=== PATIENT | male | born 1995 | race Caucasian/White ===

== ENCOUNTER 2019-11-09 19:13 | Emergency (ER) | payer SELFPAY ==
--- NOTE | 2019-11-09 19:35 | ED.PDOC ---
History of Present Illness - General Chief Complaint: Respiratory Problem Stated Complaint: Cough, fever, chest tightness Time Seen by Provider: 11/09/19 19:30 Source: patient Exam Limitations: no limitations - History of Present Illness Comments: Pt reports that he and several people in his home started feeling bad on Friday, 2 days ago. It started with a subjective fever and chills, slight throat discomfort, and largely nonproductive cough. Pt says he never measured his temp at home. He says he hasn't run a fever at all today. He says he occasionally has productive cough, but almost always nonproductive. Pt says he has some slight sinus pressure. He says his chest feels "tight" from time to time, as though he can't get a full breath (although not at this time). Pt says his throat feels normal now. Pt says IUTD. Pt says he has no history of smoking or respiratory issues. He's not aware of being exposed to COVID. Pt says he is not on meds for HTN, but has been on BP meds in the past. Pt also reports a somewhat decreased sense of smell. Allergies/Adverse Reactions: Allergies Clonidine Allergy (Unverified 03/04/13 15:28) Codeine Allergy (Unverified 03/04/13 15:28) Hydrocodone Allergy (Unverified 03/04/13 15:28) Naproxen [From Naprosyn] Allergy (Unverified 03/04/13 15:28) Home Medications: Ambulatory Orders Amoxicillin 875 mg PO BID #14 tab 11/09/19 Benzonatate Perles [Tessalon Perles] 100 mg PO Q6HRS #30 cap 11/09/19 Review of Systems - Review of Systems Constitutional: States: see HPI, chills, fever, weakness EENTM: States: see HPI, nose pain. Denies: eye pain, blurred vision, tearing, ear pain, ear discharge, nose congestion, throat pain, throat swelling, mouth pain, mouth swelling Respiratory: States: see HPI, cough, short of breath - slight, although not at this time. Denies: orthopnea, stridor, wheezing Gastrointestinal/Abdominal: States: no symptoms reported, see HPI Musculoskeletal: States: no symptoms reported, see HPI Skin: States: no symptoms reported Neurological: States: no symptoms reported Endocrine: States: no symptoms reported Hematologic/Lymphatic: States: no symptoms reported Physical Exam - Physical Exam General Appearance: Alert, Comfortable, No apparent distress ENT Exam: normal ENT inspection Neck: non-tender, full range of motion, supple Respiratory: chest non-tender, lungs clear, normal breath sounds, no respiratory distress, no accessory muscle use Cardiovascular/Chest: regular rate, rhythm, no edema, no gallop, no JVD, no murmur Neurologic: alert, normal mood/affect, oriented x 3 Skin Exam: normal color Progress - Progress Progress: 11/09/19 19:47 Pt aware that I have high concern for COVID based on symptoms. He was instructed to quarantine for 2 weeks or until 1 week symptom free. He never appeared in respiratory distress throughout stay. I encouraged him to follow with a PCP about current presentation, including elevated blood pressure with reported history of HTN. - EKG/XRAY/CT XRAY: chest - Slight atalectasis. No distinct consolidation/infiltrate. No PTX or effusion. T spine hardware intact. Departure - Departure Clinical Impression: Upper respiratory tract infection, Acute maxillary sinusitis, unspecified, Elevated blood pressure reading Time of Disposition: 19:44 Disposition: Discharge to Home or Self Care Condition: Excellent Departure Forms: ED Discharge - Pt. Copy, Patient Portal Self Enrollment Instructions: Acute Bronchitis Diet: resume usual diet Activity: increase activity as tolerated Prescriptions: Benzonatate Perles [Tessalon Perles] 100 mg PO Q6HRS #30 cap Amoxicillin 875 mg PO BID #14 tab Home Medications: Ambulatory Orders Amoxicillin 875 mg PO BID #14 tab 11/09/19 Benzonatate Perles [Tessalon Perles] 100 mg PO Q6HRS #30 cap 11/09/19
--- NOTE | 2019-11-09 19:53 | RAD ---
EXAM: XR Chest, 1 View CLINICAL HISTORY: The patient is 24 years old and is Male; cough, fever, chest tightness TECHNIQUE: Single view of the chest. COMPARISON: March 04, 2013. FINDINGS: Lungs: Unremarkable. No consolidation. Pleural space: Unremarkable. No pneumothorax. Heart: Unremarkable. No cardiomegaly. Mediastinum: Unremarkable. Bones/joints: No acute fracture identified. Parallel spinal rods. Scoliosis. Upper abdomen: No free air in the visualized upper abdomen. IMPRESSION: No acute cardiopulmonary process identified. Electronically signed by: Mady Brooks MD 11/09/2019 7:52 PM CDT
[2019-11-09 20:25] VITALS: BP 149/103; TEMP 98.1; O2SAT 98
== END 2019-11-09 20:05 | disposition home or self-care (01) ==
LOC: ER 19:13
DX: J06.9 Acute upper respiratory infection, unspecified (principal); J01.00 Acute maxillary sinusitis, unspecified; R03.0 Elevated blood-pressure reading, without diagnosis of hypertension; Z20.828 Contact with and (suspected) exposure to other viral communicable diseases
CPT/HCPCS: 71045; U0002